=== PATIENT | female | born 1975 | race Native Hawaiian/Other Pacific Islander ===

== ENCOUNTER 2017-05-23 15:56 | Emergency (ER) | payer BC ==
[2017-05-23 16:13] VITALS: TEMP 98.2; O2SAT 99
--- NOTE | 2017-05-23 17:30 | ED PDOC ---
Arrival/HPI - General Chief Complaint: Upper Extremity Problem/Injury Time Seen by Provider: 05/23/17 16:15 Historian: Patient - History of Present Illness Narrative History of Present Illness (Text): 05/23/17 16:21 A 41 year old female, with no significant past medical history, presents to the emergency department complaining of left elbow pain. Patient reports she went for DNC 2 days ago. While in operating room, anesthesiologist noticed erythema surrounding left elbow. Patient came in today for pain and increased swelling. Patient denies any trauma, fever, nausea, vomiting, or any other complaints. No PMD Past Medical History - Provider Review Nursing Documentation Reviewed: Yes - Infectious Disease Hx of Infectious Diseases: None - Psychiatric Hx Substance Use: No - Surgical History Hx Dilation and Curettage: Yes Other/Comment: endometrial mass removed via D&C may 2017 - Anesthesia Hx Anesthesia: Yes Hx Anesthesia Reactions: No Family/Social History - Physician Review Nursing Documentation Reviewed: Yes Family/Social History: No Known Family HX Smoking Status: Never Smoked Hx Alcohol Use: No Hx Substance Use: No Allergies/Home Meds Allergies/Adverse Reactions: Allergies No Known Allergies Allergy (Verified 05/23/17 16:10) Home Medications: Home Meds Medication Instructions Recorded Confirmed No Known Home Med 05/23/17 05/23/17 Review of Systems - Review of Systems Constitutional: absent: Fevers, Other (no trauma) Eyes: Normal ENT: Normal Respiratory: Normal Cardiovascular: Normal Gastrointestinal: absent: Nausea, Vomiting Genitourinary Female: Normal Musculoskeletal: Other (left elbow pain and increased swelling) Skin: Normal Neurological: Normal Endocrine: Normal Hemo/Lymphatic: Normal Psychiatric: Normal Physical Exam Vital Signs Reviewed: Yes Vital Signs Temp Pulse Resp BP Pulse Ox 05/23/17 17:48 87 18 129/76 99 05/23/17 16:10 98.2 F 101 H 16 147/99 H 99 Temperature: Afebrile Blood Pressure: Normal Pulse: Regular Respiratory Rate: Normal Appearance: Positive for: Well-Appearing Pain Distress: None Mental Status: Positive for: Alert and Oriented X 3 - Systems Exam Pupils: Present: PERRL Extroacular Muscles: Present: EOMI Respiratory/Chest: Present: Clear to Auscultation, Good Air Exchange. No: Respiratory Distress, Accessory Muscle Use Cardiovascular: Present: Regular Rate and Rhythm, Normal S1, S2. No: Murmurs Abdomen: Present: Normal Bowel Sounds. No: Tenderness, Distention, Peritoneal Signs Upper Extremity: No: Normal ROM (slightly decreased ROM in left elbow full extension) Neurological: Present: GCS=15, CN II-XII Intact, Speech Normal Medical Decision Making ED Course and Treatment: 05/23/17 16:25 Impression: 41 year old female with left elbow pain and increased swelling. Plan: -- Reassess and disposition Progress Notes: - Scribe Statement The provider has reviewed the documentation as recorded by the Wil Ennis Provider Scribe Attestation: All medical record entries made by the Scribe were at my direction and personally dictated by me. I have reviewed the chart and agree that the record accurately reflects my personal performance of the history, physical exam, medical decision making, and the department course for this patient. I have also personally directed, reviewed, and agree with the discharge instructions and disposition. Disposition/Present on Arrival - Present on Arrival Any Indicators Present on Arrival: No History of DVT/PE: No History of Uncontrolled Diabetes: No Urinary Catheter: No History of Decub. Ulcer: No History Surgical Site Infection Following: None - Disposition Have Diagnosis and Disposition been Completed?: Yes Diagnosis: Cellulitis Disposition: HOME/ ROUTINE Disposition Time: 20:00 Patient Plan: Discharge Condition: STABLE Discharge Instructions (ExitCare): Cellulitis (ED) Additional Instructions: continue current antibiotics. Frequent warm compresses and soaks in Epsom Salts solution. see orthopedist if no improvement. Referrals: Rajani Meehan MD [Staff Provider] - Follow up with primary Forms: [employer] ([place])
[2017-05-23 17:48] VITALS: BP 129/76; PULSE 87; RESP 18
== END 2017-05-23 17:50 | disposition home or self-care (01) ==
LOC: ED 15:56
DX: L03.114 Cellulitis of left upper limb (principal)